=== PATIENT | female | born 1940 | race Caucasian/White ===

== ENCOUNTER → 2018-08-13 | Outpatient (REF) | payer MEDICARE ==
[~2018-08-13] MED LIST: AMOXICILLIN500 MG PO; CLARITIN-D1 TA2 PO; KEFLEX500 MG PO
== END | disposition home or self-care (01) ==
LOC: DI 09:16
PROVIDERS: ATTEND Internal Medicine
DX: M25.512 Pain in left shoulder (principal); M19.012 Primary osteoarthritis, left shoulder

== ENCOUNTER 2020-06-29 12:13 | Emergency (ER) | payer MEDICARE ==
[~2020-06-29] VITALS: Ht 167.6 cm; Wt 70.0 kg
[2020-06-29 14:15] VITALS: BP 158/75
== END 2020-06-29 14:15 | disposition home or self-care (01) ==
LOC: ED 12:13
DX: S00.03XA Contusion of scalp, initial encounter (principal); I10 Essential (primary) hypertension; W18.2XXA Fall in (into) shower or empty bathtub, initial encounter; Y93.E1 Activity, personal bathing and showering; Y92.002 Bathroom of unspecified non-institutional (private) residence as the place of occurrence of the external cause